=== PATIENT | female | born 1945 | race Caucasian/White ===

== ENCOUNTER 2016-11-03 12:21 | Inpatient (IN) ==
--- NOTE | 2016-11-03 14:02 | CT Report ---
CT brain Indication: Mental status changes Comparison: None available Technique: Axial CT imaging of the brain is performed without contrast with 3 mm increments. Findings: No evidence of hemorrhage, mass mass effect midline shift or acute infarct seen. There is moderate diffuse cerebral atrophy. There are areas of decreased density seen within the white matter, likely related to chronic microvascular change. Otherwise the brain parenchyma attenuation and differentiation appears within normal limits. The ventricles and cisterns are normal in caliber. No cranial or skull base abnormality is identified. Impression: No evidence of acute process demonstrated. This CT exam was performed using one or more the following dose reduction techniques: Automated exposure control, adjustment of the MA and/or KV according to patient size, or use of iterative reconstruction technique. PROCEDURE INTERPRETED AT [facility] DEPARTMENT OF RADIOLOGY Final Report Signed by: Dr. Adarsh Malik
--- NOTE | 2016-11-03 14:06 | XRay Report ---
XR chest 1V portable Indication: Altered mental status Comparison: 11 August 2013 Findings: The heart and mediastinum are normal in size and configuration. The pulmonary vascularity is increased especially centrally similar to previous study. Lung volumes are increased with prominent bronchial markings. No lung infiltrates, effusions, pneumothorax or other abnormality is demonstrated. Impression: Chronic lung changes. No acute process or significant change. PROCEDURE INTERPRETED AT [facility] DEPARTMENT OF RADIOLOGY Final Report Signed by: Dr. Adarsh Malik
[2016-11-03 14:15] LABS: Basophils % 0.2 % (0.0-0.8); Eosinophils # 0.1 10*3/uL (0.0-0.87); Eosinophils % 0.9 % (0.00-10.9); Hematocrit 38.2 VOL% (35.7-47.0); Immature Granulocytes % 0.4 %; Immature Granulocytes Absolute 0.03 #; Lymphocytes # 1.8 10*3/uL (1.4-4.0); Lymphocytes % 22.5 % (21.3-54.2); Mean Corpuscular Hemoglobin 30 PG (27-34); Mean Corpuscular Volume 88.8 FL (87-102); Mean Platelet Volume 10.1 FL (9.6-12.0); Monocytes # 0.8 10*3/uL (0.11-0.8); Monocytes % 10.2 % (1.7-12.7); Neutrophils # 5.3 10*3/uL (1.4-7.4); Neutrophils % 65.8 % (38.7-73.9); Platelet Count 221 T/CUMM (130-400); Red Cell Distribution Width 13.7 % (9.3-17.3)
[2016-11-03 14:56] LABS: Apearance,Urine CLOUDY (Clear); Bacteria,Urine Many /HPF (Few); Bilirubin,Urine Negative (Negative); Blood, Urine Small mg/dL (Negative); Glucose,Urine (UA) Negative (Negative); Ketones,Urine 5 mg/dL (Negative); Mucus,Urine Many /LPF (Occasional); Nitrite,Urine Positive (Negative); Protein,Urine 30 MG/DL; Squamous Epithelial Cell,Urine Occasional /HPF (0-10); Urine Color Amber (Yellow); Urine Specific Gravity 1.016 (1.001-1.035); Urine Urobilinogen < 2.0 EU/DL (0.2-1.0); WBC,Urine 55 /HPF (0-6)
[2016-11-03 14:56] LABS: Albumin 3.7 G/DL (3.4-5.0); Bilirubin,Total 0.8 MG/DL (0.2-1.0); Calcium 8.8 MG/DL (8.5-10.1); Osmolality,Calculated 271.8 MOS/KG (273-304); Total Protein 8.2 G/DL (6.4-8.3)
[2016-11-03 14:58] LABS: Potassium 2.4 MMOL/L (3.5-5.1)
[2016-11-03] MEDS ORDERED: POTASSIUM CHLORIDE 8 MEQ CAPSULE PO STA (15:00)
[2016-11-03] MEDS ORDERED: LEVOFLOXACIN INJ 250 MG in PREMIX 1 EACH IV STA (15:01)
[2016-11-03] MEDS ORDERED: POTASSIUM CHLORIDE 20 MEQ TABLET PO ONE (15:28)
[2016-11-03] MEDS ORDERED: POTASSIUM CHLORIDE 10 MEQ TABLET PO ONE (15:28)
--- NOTE | 2016-11-03 15:50 | Emergency Department Note ---
IFabby Brittany, am scribing for, and in the presence of, Cristi Schwartz MD 13:49. Efren Hendrickson Doug C, MD, personally performed the services described in this documentation, ascribed by Kaylah Sequeira in my presence, and it is both accurate and complete . Arrival - Arrival Chief Complaint: Neuro Stated Complaint: recent memory loss ED Nursing Triage Note: c/o family member states that patient is having memory loss over the last year got worse over the last week, family is also wanting her checked for a UTI, family states nothing new is occuring today , patient alert to self, ,month and place Mode of Arrival: Wheelchair Limitations: No Limitations Source: Patient Time Seen by Provider: 11/03/16 13:38 - History of Present Illness HPI Narrative: Patient is a 71-year-old white female brought in by family for evaluation of difficulty with her memory. Her son states this been going on for about a year now but got significantly worse 1 week ago. The family discovered that she had been taking very large doses of Benadryl to help her sleep and had been taken up to 200 mg at night. They stopped her Benadryl and she states she has been unable to sleep since that time. She sees Dr. Mary Dodd in [place] for her multiple sclerosis but is not on any medication other than Sinemet at present. Patient's not had any fever or chills and she denies any urinary symptoms or respiratory symptoms. She has fallen twice in the last week but said one time she stumbled and caught her foot on the carpet. She has no history of any head injury. Onset (ago): week(s) (Started 1 week ago) Consistency: constant Severity: moderate Allergies/Adverse Reactions: Allergies Allergy/AdvReac Type Severity Reaction Status Date / Time Penicillins Allergy HIVES Verified 11/03/16 12:46 Home Medications: Home Medications Medication Instructions Recorded Confirmed Type Aspirin EC Tab 325 mg PO QPM 11/03/16 11/03/16 History Atenolol 12.5 mg PO QPM 11/03/16 11/03/16 History Carbidopa/Levodopa [Carbidopa-Levo 1 each PO QPM 11/03/16 11/03/16 History ER 50-200 Tab] Review of System - Review of System 12 point system: reviewed and no additional remarkable complaints except as stated - Review of System Review of Systems: Falls Constitutional: Absent: fever Respiratory: Absent: cough Cardiovascular: Absent: dyspnea on exertion Genitourinary female: Absent: dysuria Neurological: Present: confusion, other (Slurred speech, per son ) Medical,Surgical,& Family Hx - Medical History Neurology: History of: Multiple Sclerosis - Social History Smoking Status: Never smoker Frequency of Alcohol Use: None Type of Drug Use: None Exam Vital Signs: Vital Signs Temperature 98.5 F 11/03/16 14:00 Pulse Rate 64 11/03/16 14:00 Respiratory Rate 16 11/03/16 14:00 Blood Pressure 140/54 11/03/16 14:00 O2 Sat by Pulse Oximetry 97 11/03/16 12:40 - General General appearance: alert, in no apparent distress - Head Head exam: Present: atraumatic, normocephalic, normal inspection - Eye Eye exam: Present: normal appearance, PERRL, EOMI. Absent: scleral icterus, conjunctival injection, nystagmus, miosis, mydriasis - ENT ENT exam: Present: normal exam, normal oropharynx, mucous membranes moist, TM's normal bilaterally, normal external ear exam - Neck Neck exam: Present: normal inspection, full ROM, trachea midline. Absent: tenderness, meningismus, lymphadenopathy, thyromegaly - Chest Chest inspection: Present: normal inspection, symmetric chest wall rise. Absent : tenderness, rash, abscess - Respiratory Respiratory exam: Present: normal lung sounds bilaterally. Absent: prolonged expiratory phase, rales, respiratory distress, rhonchi, stridor, wheezes - Cardiovascular Cardiovascular exam: Present: regular rate, normal rhythm, normal heart sounds. Absent: murmur, rubs, gallop, clicks, JVD - Abdominal Exam Abdominal exam: Present: soft, normal bowel sounds. Absent: distention, tenderness, guarding, rebound, rigidity - Rectal Exam Rectal exam: Present: deferred - Extremities Exam Extremities exam: Present: normal inspection, full ROM, normal capillary refill. Absent: tenderness, pedal edema, joint swelling, calf tenderness - Back Exam Back exam: Present: normal inspection, full ROM. Absent: tenderness, muscle spasm, rashes - Neurological Exam Neurological exam: Present: alert, oriented X3, CN II-XII intact. Absent: motor sensory deficit - Psychiatric Psychiatric exam: Present: normal affect, normal mood. Absent: depressed, agitated, anxious, flat affect, manic - Skin Skin exam: Present: warm, dry, intact, normal color. Absent: rash, cyanosis, diaphoresis, erythema, pallor, mottled Course Course Narrative: Patient's laboratory findings, clinical presentation and radiographic findings were discussed with Jonnathan who is covering the hospitalist service. He will see the patient in emergency room and evaluate for admission. Cultures were obtained and IV Levaquin was begun in the emergency room Results - Labs CBC & BMP: 11/03/16 14:12 11/03/16 14:12 Lab Results: I have reviewed the patients labs Labs: Laboratory Tests 11/03/16 11/03/16 11/03/16 14:04 14:12 14:12 WBC 8.0 RBC 4.30 Hgb 13.0 Hct 38.2 MCV 88.8 MCH 30 MCHC 34.0 RDW 13.7 Plt Count 221 MPV 10.1 Neut % (Auto) 65.8 Lymph % (Auto) 22.5 Gooding % (Auto) 10.2 Eos % (Auto) 0.9 Baso % (Auto) 0.2 Neut # (Auto) 5.3 Lymph # (Auto) 1.8 Gooding # (Auto) 0.8 Eos # (Auto) 0.1 Baso # (Auto) 0.0 Immature Gran % 0.4 Nucleated RBC % 0.0 Immature Gran # 0.03 Nucleated RBCs # 0.00 Sodium 137 Potassium 2.4 L* Chloride 98 Carbon Dioxide 30 Anion Gap 11.4 BUN 11 Creatinine 0.90 GFR Calculation 62 BUN/Creatinine Ratio 12.00 Glucose 98 Calculated Osmolality 271.8 L Calcium 8.8 Total Bilirubin 0.80 AST 13 ALT 10 L Alkaline Phosphatase 98 Total Protein 8.2 Albumin 3.7 Globulin 4.5 H Albumin/Globulin Ratio 0.8 L Urine Color Sylvia Urine Appearance Cloudy Urine pH 5.0 Ur Specific [place] 1.016 Urine Protein 30 Urine Glucose (UA) Negative Urine Ketones 5 Urine Blood Small Urine Nitrate Positive H Urine Bilirubin Negative Urine Urobilinogen < 2.0 H Urine Leukocytes Small H Urine WBC 55 Ur Squamous Epith Cells Occasional Urine Bacteria Many Urine Mucus Many Ur Culture Indicated? Results to follow - Diagnostic Findings Procedure: Chest x-ray: image reviewed by me (Chronic lung changes but nothing acute. ), CT: report reviewed by me (Head CT: Nothing acute. ) Disposition Clinical Impression: Metabolic encephalopathy Case discussed with: patient, patient's family Disposition: Still a Patient Condition: Stable Time of Disposition: 15:50
--- NOTE | 2016-11-03 18:03 | Hospitalist History & Physical ---
<Jonnathan Post - Last Filed: 11/03/16 17:41> Assessment and Plan - Time spent with patient Time spent with patient: Greater than 30 minutes (1) Metabolic encephalopathy Status: Acute Assessment and plan: Likely secondary to UTI. We will continue treatment with IV Levaquin and IV fluids Current Visit: Yes (2) UTI (urinary tract infection) Status: Acute Assessment and plan: Continue IV Levaquin. Current Visit: Yes (3) Multiple sclerosis Status: Acute Assessment and plan: Continue home medications. Current Visit: Yes (4) Restless leg syndrome Status: Acute Assessment and plan: Continue home medications. Current Visit: Yes History of Present Illness Chief complaint: altered mental status History of present illness: Ms. Bryan is a 71 year old white female with a past medical history significant for hypertension, multiple sclerosis, cardiac arrhythmias, restless leg syndrome who presents to the ED today for further evaluation of altered mental status. The son, who is at bedside, reports that the patient has had a progressively worsening history of difficulty with memory, confusion and disorientation for about 2-3 months now. He tells us that these symptoms seem to have gotten even worse in the last week. Of note, the family discovered that the patient was taking excessive amounts of Benadryl as a sleep aide (sometimes up to 200mg per night). They've stopped from taking them, starting Friday night. The patient reports she has been unable to sleep since that time. On exam , the patient is oriented to person, place, month and year though she is somewhat delayed in her response. She confirms intermittent confusion, disorientation and recent falls. She denies headache, dizziness, chest pain, palpitations, N/V, changes in appetite, urinary or bowel changes, edema. Lab work is remarkable for hypokalemia (2.4) and UTI (positive nitrate, small leuks , 55 WBCs, bacteria and mucus). Case has been discussed with Dr. Schwartz, ER physician, and Dr. Baez, admitting physician and the patient will be admitted for further evaluation and treatment. She is a full code. Home medications have been reviewed and reconciled. Home Medications Medication Instructions Recorded Confirmed Type Aspirin EC Tab 325 mg PO QPM 11/03/16 11/03/16 History Atenolol 12.5 mg PO QPM 07/23/17 07/23/17 History Carbidopa/Levodopa [Carbidopa-Levo 1 each PO QPM 11/03/16 11/03/16 History ER 50-200 Tab] Allergies Allergy/AdvReac Type Severity Reaction Status Date / Time Penicillins Allergy HIVES Verified 11/03/16 12:46 Medical,Surgical,& Family Hx - Medical History Neurology: History of: Multiple Sclerosis - Social History Smoking Status: Never smoker Frequency of Alcohol Use: None Type of Drug Use: None Marital Status: Single Lives With:: Alone Functional capacity: uses cane/walker 12 point system: reviewed and no additional remarkable complaints except as stated Exam - Constitutional Vitals: Period Temp Pulse Resp BP Sys/Mcfarland Pulse Ox Last 24 Hr 98.5 F-98.5 F 59-67 16-18 133-180/54-85 93-98 Exam: General appearance: normal weight, no acute distress - Head Head exam: Present: normocephalic, atraumatic - Eye Eye exam: Present: EOMI. Absent: conjunctival injection, nystagmus Pupils: Present: SAMM, normal accommodation - ENT ENT exam: Present: normal exam, normal external ear exam - Neck Neck exam: Present: normal inspection. Absent: lymphadenopathy, tenderness, thyromegaly - Respiratory Respiratory exam: Present: clear to auscultation bilaterally. Absent: rales, rhonchi, wheezes - Cardiovascular Cardiovascular exam: Present: regular rate and rhythm. Absent: carotid bruit, gallop, rubs - GI/Abdominal GI/Abdominal exam: Present: normal bowel sounds. Absent: ascites, distended, mass - Extremities Exam Extremities exam: Present: normal inspection, normal capillary refill. Absent: edema - Back Exam Back exam: Absent: CVA tenderness (L), CVA tenderness (R) - Neurological Exam Neurological exam: Present: alert, oriented X3, CN II-XII intact, reflexes normal - Psychiatric Psychiatric exam: Present: normal affect, normal mood - Skin Skin exam: Present: normal color, warm, dry Results - Labs CBC & BMP: 11/03/16 14:12 11/03/16 14:12 Lab Results: I have reviewed the past 24 hour labs - Diagnostic Findings Procedure: Chest x-ray: image reviewed by me, report reviewed by me (no acute changes), CT: image reviewed by me, report reviewed by me (head: unremarkable) <Melia Baez - Last Filed: 11/03/16 19:28> History of Present Illness History of present illness: Ms. Bryan is a 71 year old female with multiple medical issues including multiple sclerosis who was brought to the ER for evaluation of progressive recent memory loss and altered mental status.CT head showed no acute changes. Labs showed UTI and hypokalemia of 2.4.Patient was seen, examined and discussed with the RECYCLING MANAGER. Plan IV Levaquin Neuro consult Replete potassium, magnesium level Dementia workup- RPR, TSH, Vit B12 level, Folate levels Mini mental status exam Consider an MRI in am to re-evaluate her MS DVT prophylaxis IVF resume home meds. Exam - Constitutional Vitals: Period Temp Pulse Resp BP Sys/Mcfarland Pulse Ox Last 24 Hr 98.5 F-98.5 F 59-77 16-20 133-180/54-86 93-98 Results - Labs CBC & BMP: 11/03/16 14:12 11/03/16 14:12
[2016-11-03] MEDS ORDERED: ONDANSETRON 4 MG/2 ML VIAL IV PRN (18:28)
[2016-11-03] MEDS ORDERED: ACETAMINOPHEN 325 MG TABLET PO PRN (18:28)
[2016-11-03] MEDS ORDERED: LACTULOSE 20 GM/30 ML UDCUP PO PRN (18:28)
[2016-11-03] MEDS ORDERED: DOCUSATE SODIUM 100 MG CAPSULE PO PRN (18:28)
[2016-11-03] MEDS ORDERED: SODIUM CHLORIDE 0.9% 1,000 ML IV SCH (18:30)
[2016-11-03] MEDS ORDERED: ATENOLOL 25 MG TABLET PO SCH (19:00)
[2016-11-03] MEDS ORDERED: ASPIRIN EC 325 MG TABLET PO SCH (19:00)
[2016-11-03] MEDS ORDERED: CARBIDOPA/LEVODOPA CR 50-200 MG TABLET PO SCH (19:00)
[2016-11-03] MEDS ORDERED: DEXT 5% NACL 0.45% KCL 20 MEQ 20 MEQ/1,000 ML BAG IV SCH (19:30)
[2016-11-03] MEDS ORDERED: SODIUM CHLORIDE 0.45% 1,000 ML IV SCH (19:30)
[2016-11-03] MEDS: ENOXAPARIN 40 MG/0.4 ML SYRINGE SUBCUT SCH (21:21)
[2016-11-03 21:41] LABS: Vitamin B12 242 PG/ML (211-911)
[2016-11-03] MEDS: ZALEPLON 5 MG CAPSULE PO PRN (22:08)
[2016-11-04 06:30] LABS: Basophils % 0.7 % (0.0-0.8); Eosinophils # 0.1 10*3/uL (0.0-0.87); Eosinophils % 1.8 % (0.00-10.9); Hematocrit 34.2 VOL% (35.7-47.0); Hemoglobin 11.6 GM/DL (12.0-16.0); Immature Granulocytes % 0.2 %; Immature Granulocytes Absolute 0.01 #; Lymphocytes # 1.6 10*3/uL (1.4-4.0); Lymphocytes % 28.1 % (21.3-54.2); Mean Corpuscular HGB Conc 33.9 GM/DL (32-36); Mean Corpuscular Hemoglobin 30 PG (27-34); Mean Corpuscular Volume 88.8 FL (87-102); Mean Platelet Volume 11.1 FL (9.6-12.0); Monocytes # 0.6 10*3/uL (0.11-0.8); Monocytes % 10.5 % (1.7-12.7); Neutrophils # 3.3 10*3/uL (1.4-7.4); Neutrophils % 58.7 % (38.7-73.9); Platelet Count 208 T/CUMM (130-400); Red Blood Count 3.85 MC/CUMM (3.8-5.5); Red Cell Distribution Width 13.6 % (9.3-17.3); White Blood Count 5.6 T/CUMM (4-12)
[2016-11-04 06:56] LABS: Calcium 8.3 MG/DL (8.5-10.1); Osmolality,Calculated 277.4 MOS/KG (273-304); Potassium 2.6 MMOL/L (3.5-5.1)
[2016-11-04] MEDS: PANTOPRAZOLE 40 MG TABLET PO SCH (08:55)
[2016-11-04] MEDS: POTASSIUM CHLORIDE RIDER 10 MEQ in PREMIX 1 EACH IV PRN ×6 (08:56→23:27)
[2016-11-04] MEDS ORDERED: LEVOFLOXACIN INJ 500 MG in PREMIX 1 EACH IV SCH (09:00)
[2016-11-04] MEDS ORDERED: HYDROmorphone 2 MG/1 ML VIAL IV PRN (10:56)
--- NOTE | 2016-11-04 12:58 | Magnetic Resonance Report ---
Exam: MR head/brain wo con Date: 11/04/2016 7:29 PM Comparison: CT brain 11/03/2016 Indication: Memory loss Technical: 1.5 Michelle magnet Axial T1 pre-and ADC, DWI, FLAIR, gradient echo and FSE T2 Sagittal T1 precontrast, FLAIR Coronal FSE T2 Contrast:0 cc Dotarem Findings: Exam reveals small area of abnormal signal suspected in the right thalamic left thalamic region. Dark signal present on ADC imaging. These could represent small tiny infarctions. The cerebellum reveals component of mild atrophic changes. The brainstem is otherwise intact. The cerebral hemispheres exhibit abnormal signal characteristics. Blotchy areas of abnormal signal in the periventricular and subcortical white matter regions with old area of lacunar infarction in the right centrum semiovale along the mid parietal and posterior right parietal lobe. The ventricles are mildly enlarged. The corpus callosum is unremarkable. The seventh and eighth cranial nerves and cerebral pontine angles are intact. The pituitary gland, infundibulum and optic chiasm are intact. The paranasal sinuses exhibit normal signal characteristics. The mastoid sinuses are unremarkable. The globes and intra-and extraconal spaces are unremarkable. Impression: 1. 1. Diffuse small vessel ischemic changes are present in the periventricular subcortical white matter regions bilaterally 2. Old lacunar infarctions in the right parietal lobe anteriorly and posteriorly in the subcortical junction 3. Tiny punctate areas of increased signal on the diffusion image in the basal ganglia thalamic junction right greater than left could represent possibly a small area of infarction with some abnormal signal on the corresponding ADC images well. PROCEDURE INTERPRETED AT [facility] DEPARTMENT OF RADIOLOGY Final Report Signed by: Dr. Sulaiman Jiménez
--- NOTE | 2016-11-04 16:09 | Neurology Consult Note ---
History of Present Illness History of present illness: Ms. Bryan is a 71 year old right-handed white lady with a past medical history significant for hypertension, multiple sclerosis diagnosed some [address] Mary Dodd in [place] but patient is not on any medication, cardiac arrhythmias, restless leg syndrome who presents to the ED for further evaluation of altered mental status. The son, who is at bedside, reports that the patient has had a progressively worsening history of difficulty with memory , confusion and disorientation for about 2-3 months now. He tells us that these symptoms seem to have gotten even worse in the last week. Of note, the family discovered that the patient was taking excessive amounts of Benadryl as a sleep aide (sometimes up to 200mg per night). They've stopped from taking them, starting Friday night. The patient reports she has been unable to sleep since that time. She has been having difficulty in using her phone for last 1 week and that happened more drastically. MRI of the brain revealed questionable bilateral basal ganglia infarct subacute in nature. She is going to see Dr. Mary Dodd in 3 weeks. She was found to have UTI this time and she is now on antibiotics Home Medications Medication Instructions Recorded Confirmed Type Aspirin EC Tab 325 mg PO QPM 11/03/16 11/03/16 History Atenolol 12.5 mg PO QPM 11/03/16 11/03/16 History Carbidopa/Levodopa [Carbidopa-Levo 1 each PO QPM 11/03/16 11/03/16 History ER 50-200 Tab] Allergies Allergy/AdvReac Type Severity Reaction Status Date / Time Penicillins Allergy HIVES Verified 11/03/16 12:46 12 point system: reviewed and no additional remarkable complaints except as stated Medical,Surgical,& Family Hx - Medical History Cardio: History of: Cardiac Dysrhythmia Neurology: History of: Multiple Sclerosis Genitourinary: History of: Recurring Urinary Tract Infections Musculoskeletal: No history of: Amputation - Surgical History Thoracic Surgeries: Patient denies;: Lobectomy Neurologic Surgeries: Patient denies: Neurologic Surgery HEENT Surgeries: Patient denies: Thyroid Surgery Abdominal Surgeries: Surgical HX of: Abdominal Surgery (hysterectomy) Reproductive Surgeries: Surgical HX of;: Gynecologic Surgery, Hysterectomy - Family History Family History: Reports;: Family Cancer (sibling), Family Heart Disease (mother and father) - Social History Smoking Status: Never smoker Frequency of Alcohol Use: None Type of Drug Use: None Exam - Constitutional Vitals: Period Temp Pulse Resp BP Sys/Mcfarland Pulse Ox Last 24 Hr 97.6 F-98.6 F 60-77 16-20 138-180/70-86 91-98 Exam: GENERAL: Patient is in no acute distress. NECK: Neck is supple. There is no JVD. No carotid bruits present. No thyroid masses. CVS: First and second heart sounds are normal. There is no S3 present. Regular rate and rhythm. RESPIRATORY: Lungs are clear to auscultation without any rales or rhonchi. ABDOMEN: Soft and non-tender. Bowel sounds are present. There is no hepatosplenomegaly. EXT: There is no palpable edema. Peripheral pulses are present. Skin: No rashes Central Nervous system: General: Alert, awake and Oriented Speech: Fluent Comprehension: Intact and normal Facial expressions: Normal Cranial Nerves: CN1/Olfactory: Normal CN II/ Optic: Normal, Visual Alvarez unreliable CN III, and : SAMM & EOMI CN V: Normal & intact CN VII: face is symmetric CNVIII: Normal CN XI/X/XI/XII: Intact and Normal Motor: Bulk and Tone is normal. Strength in the right 4/5 Strength in the left 4/5 Sensory: Grossly intact for all the modalities of PP, LT and temp sense Reflexes: 1+ and symmetrical Cerebellar function: Normal finger to nose and heel to moya testing. Toes: Equivocal Gait: Not tested at this time Results - Labs CBC & BMP: 11/04/16 05:53 11/04/16 05:53 Assessment and Plan (1) Infectious encephalopathy Status: Acute Assessment and plan: This is getting better since she is on IV antibiotics. Current Visit: Yes (2) Dementia Status: Acute Assessment and plan: This needs further investigation as an outpatient once UTI clears up. Defer this management to Dr. Mary oscar Current Visit: Yes (3) CVA (cerebral vascular accident) Status: Acute Assessment and plan: The MRI finding is quite unusual to have acute stroke however given patient's worsening symptoms for last 1 week the possibility of an acute stroke cannot be excluded entirely. We will stop aspirin Start Plavix 75 mg daily Lipid profile Current Visit: Yes (4) Multiple sclerosis Status: Acute Assessment and plan: Patient is not on any medication. Multiple sclerosis can cause dementia as well. Defer further management to Dr. Mary Dodd Current Visit: Yes (5) B12 deficiency Status: Acute Assessment and plan: Start B12 1 cc IM daily Current Visit: Yes
[2016-11-04 16:42] LABS: Risk Ratio 3.33; VLDL CHOLESTEROL 24.2 MG/DL
[2016-11-04] MEDS: CYANOCOBALAMIN 1000 MCG/1 ML VIAL IM SCH (16:56)
--- NOTE | 2016-11-04 17:11 | Hospitalist Progress Note ---
Assessment and Plan (1) Encephalopathy Status: Acute Assessment and plan: Patient has history of memory loss per son Now with acute worsening, possibly secondary to UTI, also possibly with CVA Continue levaquin Neurology following Replacing B12 Current Visit: Yes (2) Multiple sclerosis Status: Acute Current Visit: Yes (3) UTI (urinary tract infection) Status: Acute Assessment and plan: Levaquin Current Visit: Yes (4) Dementia Status: Acute Current Visit: Yes (5) CVA (cerebral vascular accident) Status: Acute Assessment and plan: Neurology following Started on plavix Current Visit: Yes (6) B12 deficiency Status: Acute Assessment and plan: Replacing Current Visit: Yes Hospitalist: Subjective Interval history: No acute events overnight. Patient oriented x3. Her responses are noted to be slowed. Exam - Constitutional Vitals: Period Temp Pulse Resp BP Sys/Mcfarland Pulse Ox Last 24 Hr 97.6 F-98.6 F 60-77 16-20 138-172/70-84 91-98 General appearance: normal weight - Head Head exam: Present: normocephalic, atraumatic - Eye Eye exam: Present: EOMI Pupils: Present: SAMM - ENT ENT exam: Present: normal exam - Neck Neck exam: Present: normal inspection - Respiratory Respiratory exam: Present: clear to auscultation bilaterally. Absent: rhonchi, wheezes - Cardiovascular Cardiovascular exam: Present: regular rate and rhythm - GI/Abdominal GI/Abdominal exam: Present: normal bowel sounds, soft. Absent: tenderness, rebound - Extremities Exam Extremities exam: Present: normal inspection - Back Exam Back exam: Present: normal inspection - Neurological Exam Neurological exam: Present: alert, oriented X3 - Psychiatric Psychiatric exam: Present: normal affect, normal mood - Skin Skin exam: Present: warm, intact Results - Labs CBC & BMP: 11/04/16 05:53 11/04/16 05:53
[2016-11-04] MEDS: ENOXAPARIN 40 MG/0.4 ML SYRINGE SUBCUT SCH (20:44)
[2016-11-04] MEDS: CARBIDOPA/LEVODOPA CR 50-200 MG TABLET PO SCH (20:46)
[2016-11-04] MEDS: ATENOLOL 25 MG TABLET PO SCH (21:05)
[2016-11-05] MEDS: ZALEPLON 5 MG CAPSULE PO PRN (00:08)
[2016-11-05] MEDS: POTASSIUM CHLORIDE RIDER 10 MEQ in PREMIX 1 EACH IV PRN ×4 (01:52→12:07)
[2016-11-05 06:10] LABS: Basophils % 0.4 % (0.0-0.8); Eosinophils # 0.1 10*3/uL (0.0-0.87); Hematocrit 35.9 VOL% (35.7-47.0); Hemoglobin 12.1 GM/DL (12.0-16.0); Immature Granulocytes % 0.4 %; Immature Granulocytes Absolute 0.02 #; Lymphocytes # 1.3 10*3/uL (1.4-4.0); Lymphocytes % 24.5 % (21.3-54.2); Mean Corpuscular HGB Conc 33.7 GM/DL (32-36); Mean Corpuscular Hemoglobin 30 PG (27-34); Mean Corpuscular Volume 88.6 FL (87-102); Monocytes # 0.6 10*3/uL (0.11-0.8); Monocytes % 10.7 % (1.7-12.7); Neutrophils # 3.4 10*3/uL (1.4-7.4); Platelet Count 187 T/CUMM (130-400); Red Blood Count 4.05 MC/CUMM (3.8-5.5); Red Cell Distribution Width 13.6 % (9.3-17.3); White Blood Count 5.4 T/CUMM (4-12)
[2016-11-05 06:48] LABS: Calcium 8.5 MG/DL (8.5-10.1); Osmolality,Calculated 271.7 MOS/KG (273-304); Potassium 3.4 MMOL/L (3.5-5.1)
[2016-11-05] MEDS: PANTOPRAZOLE 40 MG TABLET PO SCH (09:03)
[2016-11-05] MEDS: CYANOCOBALAMIN 1000 MCG/1 ML VIAL IM SCH (09:03)
[2016-11-05] MEDS: CLOPIDOGREL 75 MG TABLET PO SCH (09:03)
--- NOTE | 2016-11-05 13:06 | Hospitalist Progress Note ---
Assessment and Plan (1) Encephalopathy Status: Acute Assessment and plan: Patient has history of memory loss per son Now with acute worsening, possibly secondary to UTI, also possibly with CVA Continue levaquin Neurology following Replacing B12 Current Visit: Yes (2) Multiple sclerosis Status: Acute Current Visit: Yes (3) UTI (urinary tract infection) Status: Acute Assessment and plan: Levaquin Urine culture grew E. coli Changing to po in anticipation for possible discharge tomorrow Current Visit: Yes (4) Dementia Status: Acute Current Visit: Yes (5) CVA (cerebral vascular accident) Status: Acute Assessment and plan: Neurology following Started on plavix PT/OT Current Visit: Yes (6) B12 deficiency Status: Acute Assessment and plan: Replacing Current Visit: Yes Hospitalist: Subjective Interval history: No acute events overnight. This morning patient is alert and oriented x3. But her responses are more slowed. She did receive norco and sonata last night. Her son is very eager for her discharge. Possibly tomorrow. Exam - Constitutional Vitals: Period Temp Pulse Resp BP Sys/Mcfarland Pulse Ox Last 24 Hr 97.2 F-98.3 F 58-72 14-20 122-158/50-98 92-96 General appearance: normal weight - Head Head exam: Present: normocephalic, atraumatic - Eye Eye exam: Present: EOMI Pupils: Present: SAMM - ENT ENT exam: Present: normal exam - Neck Neck exam: Present: normal inspection - Respiratory Respiratory exam: Present: clear to auscultation bilaterally. Absent: rhonchi, wheezes - Cardiovascular Cardiovascular exam: Present: regular rate and rhythm - GI/Abdominal GI/Abdominal exam: Present: normal bowel sounds, soft. Absent: tenderness, rebound - Extremities Exam Extremities exam: Present: normal inspection - Back Exam Back exam: Present: normal inspection - Neurological Exam Neurological exam: Present: alert, oriented X3 - Psychiatric Psychiatric exam: Present: normal affect, normal mood - Skin Skin exam: Present: warm, intact Results - Labs CBC & BMP: 11/05/16 05:52 11/05/16 05:52 Specialty Discharge - Follow Up or Referrals
[2016-11-05] MEDS ORDERED: traZODone 50 MG TABLET PO PRN (13:10)
--- NOTE | 2016-11-05 15:10 | Neurology Progress Note ---
Neurology - PN : Subjective Interval history: Patient seems to be doing better. No new problems reported. Lipid panel looks okay. She is able to get up and walk Exam (Progress Note) - Constitutional Vitals: Period Temp Pulse Resp BP Sys/Mcfarland Pulse Ox Last 24 Hr 97.2 F-98.3 F 58-72 14-20 122-158/50-98 92-96 Exam: GENERAL: Patient is in no acute distress. NECK: Neck is supple. There is no JVD. No carotid bruits present. No thyroid masses. CVS: First and second heart sounds are normal. There is no S3 present. Regular rate and rhythm. RESPIRATORY: Lungs are clear to auscultation without any rales or rhonchi. ABDOMEN: Soft and non-tender. Bowel sounds are present. There is no hepatosplenomegaly. EXT: There is no palpable edema. Peripheral pulses are present. Skin: No rashes Central Nervous system: General: Alert, awake and Oriented Speech: Fluent Comprehension: Intact and normal Facial expressions: Normal Cranial Nerves: CN1/Olfactory: Normal CN II/ Optic: Normal, Visual Alvarez unreliable CN III, and : SAMM & EOMI CN V: Normal & intact CN VII: face is symmetric CNVIII: Normal CN XI/X/XI/XII: Intact and Normal Motor: Bulk and Tone is normal. Strength in the right 4/5 Strength in the left 4/5 Sensory: Grossly intact for all the modalities of PP, LT and temp sense Reflexes: 1+ and symmetrical Cerebellar function: Normal finger to nose and heel to moya testing. Toes: Equivocal Gait: Able to get up and walk Results - Labs CBC & BMP: 11/05/16 05:52 11/05/16 05:52 Assessment and Plan (1) Infectious encephalopathy Status: Acute Assessment and plan: This is getting better since she is on IV antibiotics. Current Visit: Yes (2) Dementia Status: Acute Assessment and plan: This needs further investigation as an outpatient once UTI clears up. Defer this management to Dr. Mary oscar Current Visit: Yes (3) CVA (cerebral vascular accident) Status: Acute Assessment and plan: Continue Plavix Current Visit: Yes (4) Multiple sclerosis Status: Acute Assessment and plan: Patient is not on any medication. Multiple sclerosis can cause dementia as well. Defer further management to Dr. Mary Dodd Current Visit: Yes (5) B12 deficiency Status: Acute Assessment and plan: Cont. B12 1 cc IM daily for 3 days then once a week for 4 weeks then once a month and continue for 6 month Sign off please call as needed Current Visit: Yes Specialty Discharge - Follow Up or Referrals
[2016-11-05] MEDS: ENOXAPARIN 40 MG/0.4 ML SYRINGE SUBCUT SCH (20:54)
[2016-11-05] MEDS: CARBIDOPA/LEVODOPA CR 50-200 MG TABLET PO SCH (20:54)
[2016-11-05] MEDS: ATENOLOL 25 MG TABLET PO SCH (20:54)
[2016-11-05] MEDS: POTASSIUM CHLORIDE 20 MEQ TABLET PO PRN (20:54)
[2016-11-06] MEDS: POTASSIUM CHLORIDE 20 MEQ TABLET PO PRN ×2 (01:29→03:44)
[2016-11-06 07:37] LABS: Basophils % 0.4 % (0.0-0.8); Eosinophils # 0.1 10*3/uL (0.0-0.87); Eosinophils % 2.9 % (0.00-10.9); Hematocrit 36.2 VOL% (35.7-47.0); Hemoglobin 12.2 GM/DL (12.0-16.0); Immature Granulocytes % 0.4 %; Immature Granulocytes Absolute 0.02 #; Lymphocytes # 1.1 10*3/uL (1.4-4.0); Lymphocytes % 23.9 % (21.3-54.2); Mean Corpuscular HGB Conc 33.7 GM/DL (32-36); Mean Corpuscular Hemoglobin 30 PG (27-34); Mean Corpuscular Volume 89.6 FL (87-102); Mean Platelet Volume 10.8 FL (9.6-12.0); Monocytes # 0.6 10*3/uL (0.11-0.8); Monocytes % 11.6 % (1.7-12.7); Neutrophils # 2.9 10*3/uL (1.4-7.4); Neutrophils % 60.8 % (38.7-73.9); Platelet Count 211 T/CUMM (130-400); Red Blood Count 4.04 MC/CUMM (3.8-5.5); Red Cell Distribution Width 13.7 % (9.3-17.3); White Blood Count 4.8 T/CUMM (4-12)
[2016-11-06 08:09] LABS: Calcium 9.2 MG/DL (8.5-10.1); Magnesium 2.4 MG/DL (1.8-2.4); Osmolality,Calculated 275.4 MOS/KG (273-304); Potassium 4.1 MMOL/L (3.5-5.1)
[2016-11-06] MEDS ORDERED: LEVOFLOXACIN 500 MG TABLET PO SCH (09:00)
[2016-11-06] MEDS: CLOPIDOGREL 75 MG TABLET PO SCH (09:28)
[2016-11-06] MEDS: CYANOCOBALAMIN 1000 MCG/1 ML VIAL IM SCH (09:28)
[2016-11-06] MEDS: PANTOPRAZOLE 40 MG TABLET PO SCH (09:28)
--- NOTE | 2016-11-06 10:46 | Quality Management ---
The patient's LDL is 97. Please order the appropriate medication or provide a contraindication PRIOR to discharge. To complete this task, you will need to order the medication OR provide a contraindication utilizing the Order Management screen. DO NOT ORDER OR PROVIDE CONTRAINDICATIONS WITHIN THIS QUERY. THIS IS A MEANINGFUL USE REQUIREMENT! Thank you, Sisi Cartagena, RN Clinical Director Strategic Account Management W [phone] [facility]
--- NOTE | 2016-11-06 11:37 | Discharge Summary ---
<Shanelle Estesda - Last Filed: 11/06/16 11:27> Hospital Course - Hospital Course Hospital Course: This is a 71-year-old female that presented to the ED at [facility] on November 03, 2016 for the evaluation of altered mental status. Patient has a medical history significant for hypertension, multiple sclerosis, restless leg syndrome, and cardiac arrhythmias. No surgical history was reported at the time of ED presentation. At the time of ED presentation, the patient presented grossly altered. Her son was present at bedside and served as historian. The son reported that the patient has experienced a gradual change in her mental status over the last couple of months. He reported that the patient started experiencing difficulty remembering things, with increased episodes of confusion and disorientation. He reported that the symptoms became more severe 1 week prior to presentation. In addition, the son reported that the patient had been taking excessive amounts of Benadryl at night in an effort to sleep. He reported that the patient has taken on some occasion in excess of 200 mg. When the son became aware of the patient's Benadryl ingestion, he removed the medications from her on the night of October 28, 2016. He reports that she has not slept since then and has experienced multiple falls. They became alarmed and transported the patient to the ED for further evaluation. At the time of ED presentation, the patient is an alert and oriented however slow to respond. By her own admission, the patient reported intermittent confusion, disorientation, and multiple falls. Labs were obtained; which reported hypokalemia with potassium noted at 2.4 and the patient was noted to have a urinary tract infection with findings of positive nitrates, small amount of leukocytes, white blood cell count was noted at 55, and bacteria and mucus were noted. Chest x-ray was unremarkable for any acute cardiopulmonary processes. CT brain without contrast was negative for any acute intracranial processes. The patient was subsequently admitted to the hospitalist service for continuation of care. Due to the complexity of the patient's comorbidities , a neurology consultation was requested to evaluate and assist during the clinical encounter. Gentle rehydration and empiric antibiotic coverage was initiated at the time of admission. On November 04, 2016, the patient underwent MRI of the brain which reported diffuse small vessel ischemic changes which were present in the periventricular subcortical white matter regions bilaterally, all lacunar for infarctions in the right parietal lobe anteriorly and posteriorly in the subcortical junction, and tiny punctuate areas of increased signal on the diffusion image in the basal ganglia ophthalmic junction right greater than left was possibly employee representative of a small area of infarction with some abnormal signal line on the corresponding ADC images as well. The patient was seen and evaluated by neurology. She wsa started on Plavix 75 mg p.o. daily and her aspirin was stopped. Her B12 was also replaced. This morning she is more alert.. The patient's condition is stable. She has not experienced any significant overnight events. The patient's vital signs are stable. Today, we feel that she is indeed appropriate for discharge to follow-up with her primary care physician and Dr. Mary Dodd. Patient lives alone but her children will stay with her 04/11 for a few days. Specialty Discharge - Follow Up or Referrals Discharge Plan - Discharge Data Disposition: Disch To Home/Self Care - Discharge Medications New Clopidogrel [Plavix] 75 mg PO DAILY #30 tablet Levofloxacin Tab [Levaquin Tab] 500 mg PO DAILY #5 tablet Potassium Citrate [Potassium Citrate ER] 10 meq PO DAILY #30 tablet.er Rosuvastatin [Crestor] 10 mg PO DAILY #30 tablet Cyanocobalamin Inj [Vitamin B12 Inj] 1,000 mcg IM Q7DAY #10 vial Continue Atenolol 12.5 mg PO QPM Restful Legs 1 tablet BEDTIME Carbidopa/Levodopa [Carbidopa-Levo ER 50-200 Tab] 1 each PO QPM Discontinued Aspirin EC Tab 325 mg PO QPM - Follow Up or Referral - Forms/Instructions Instructions: Ischemic Stroke, 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) Exam - Constitutional Vitals: Period Temp Pulse Resp BP Sys/Mcfarland Pulse Ox Last 24 Hr 96.7 F-98.3 F 58-69 18-20 127-151/70-98 92-96 Discharge Results Labs on day of discharge: Labs from last 24 hours 11/06/16 11/06/16 11/06/16 08:58 06:35 06:35 WBC 4.8 RBC 4.04 Hgb 12.2 Hct 36.2 MCV 89.6 MCH 30 MCHC 33.7 RDW 13.7 Plt Count 211 MPV 10.8 Neut % (Auto) 60.8 Lymph % (Auto) 23.9 [place] % (Auto) 11.6 Eos % (Auto) 2.9 Baso % (Auto) 0.4 Neut # (Auto) 2.9 Lymph # (Auto) 1.1 L [place] # (Auto) 0.6 Eos # (Auto) 0.1 Baso # (Auto) 0.0 Immature Gran % 0.4 Nucleated RBC % 0.0 Immature Gran # 0.02 Nucleated RBCs # 0.00 Sodium 140 Potassium 4.1 4.1 Chloride 105 Carbon Dioxide 27 Anion Gap 12.1 BUN 8 Creatinine 0.80 GFR Calculation 71 BUN/Creatinine Ratio 10.00 Glucose 83 Calculated Osmolality 275.4 Calcium 9.2 Magnesium 2.4 11/05/16 18:49 WBC RBC Hgb Hct MCV MCH MCHC RDW Plt Count MPV Neut % (Auto) Lymph % (Auto) [place] % (Auto) Eos % (Auto) Baso % (Auto) Neut # (Auto) Lymph # (Auto) [place] # (Auto) Eos # (Auto) Baso # (Auto) Immature Gran % Nucleated RBC % Immature Gran # Nucleated RBCs # Sodium Potassium 3.4 L Chloride Carbon Dioxide Anion Gap BUN Creatinine GFR Calculation BUN/Creatinine Ratio Glucose Calculated Osmolality Calcium Magnesium DS: Provider Date of admission: 11/03/16 16:19 Primary care physician: . No PCP Attending physician on admission: Melia Baez MD Consults: 11/03/16 19:29 Consult to Physician [CONS] Routine Comment: memeroy loss in an MS patient Consulting Provider: Roberto Chen Consult to Specialist Group: Neurology When should Consulting Provider be notified: In am Person Notified: FAN Date Notified: 11/04/16 Time Notified: 08:56 Consult Notification Comment: 11/04/16 07:28 OT [Consult to Occupational Therapy] [CONS] Routine Reason for Occupational Therapy: Other Consult Comment: for mini mental exam 11/04/16 17:11 Consult to Physical Therapy [CONS] Routine Reason for Physical Therapy: Evaluate and Treat Discharging clinician: Philip Estes CNP <Keisha King - Last Filed: 11/06/16 11:43> Hospital Course - Time spent with patient Time with patient DS: Greater than 30 minutes (35) Diagnosis - Discharge Diagnosis (1) Encephalopathy Status: Resolved (2) Multiple sclerosis Status: Chronic (3) UTI (urinary tract infection) Status: Resolved (4) Dementia Status: Chronic (5) CVA (cerebral vascular accident) Status: Chronic (6) B12 deficiency Status: Resolved Discharge Plan - Discharge Data Condition at Discharge: Stable Discharge Diet: advance to your usual diet Activity: increase activity as tolerated Hygiene: no restrictions Weight Bearing at Discharge: weight bear as tolerated Driving: not until seen by doctor Contact your physician if you experience:: fever over 101, Shortness of breath Exam - Constitutional General appearance: normal weight - Head Head exam: Present: normocephalic, atraumatic - Eye Eye exam: Present: EOMI Pupils: Present: SAMM - ENT ENT exam: Present: normal exam - Neck Neck exam: Present: normal inspection - Respiratory Respiratory exam: Present: clear to auscultation bilaterally. Absent: rhonchi, wheezes - Cardiovascular Cardiovascular exam: Present: regular rate and rhythm - GI/Abdominal GI/Abdominal exam: Present: normal bowel sounds, soft. Absent: tenderness, rebound - Extremities Exam Extremities exam: Present: normal inspection - Back Exam Back exam: Present: normal inspection - Neurological Exam Neurological exam: Present: alert, oriented X3 - Psychiatric Psychiatric exam: Present: normal affect, normal mood - Skin Skin exam: Present: warm, intact
[2016-11-06 11:53] VITALS: BP 114/62
== END 2016-11-06 13:30 | disposition home or self-care (01) | DRG 64 ==
LOC: N.ED 12:21 → N.EDINP 16:19 → SUATTDRO 16:19 → N.5E 18:07
PROVIDERS: ADMIT Internal Medicine; ATTEND Internal Medicine

== ENCOUNTER 2021-12-23 10:02 | Observation (INO) ==
[2021-12-23 11:05] LABS: Albumin 3.6 G/DL (3.4-5.0); Bilirubin,Total 0.7 MG/DL (0.20-1.00); Calcium 10.4 MG/DL (8.5-10.1); Osmolality,Calculated 300.8 MOS/KG (273-304); Potassium 4.4 MMOL/L (3.5-5.1); Total Protein 8.3 G/DL (6.4-8.2)
[2021-12-23] MEDS ORDERED: LACTATED RINGERS 1,000 ML IV ONE (11:14)
[2021-12-23 12:11] LABS: Basophils % 0.1 % (0.0-0.8); Hematocrit 41.6 VOL% (35.7-47.0); Hemoglobin 13.3 GM/DL (12.0-16.0); Immature Granulocytes % 0.7 %; Immature Granulocytes Absolute 0.14 #; Lymphocytes # 0.8 10*3/uL (1.4-4.0); Lymphocytes % 3.9 % (21.3-54.2); Mean Corpuscular Volume 94.8 FL (87-102); Mean Platelet Volume 10.4 FL (9.6-12.0); Monocytes # 0.8 10*3/uL (0.11-0.8); Monocytes % 3.9 % (1.7-12.7); Neutrophils % 91.4 % (38.7-73.9); Platelet Count 297 T/CUMM (130-400); Red Blood Count 4.39 MC/CUMM (3.8-5.5); White Blood Count 19.5 T/CUMM (4-12)
[2021-12-23] MEDS ORDERED: LACTATED RINGERS 500 ML IV ONE (12:16)
[2021-12-23] MEDS ORDERED: cefTRIAXone 1,000 MG in SODIUM CHLORIDE 0.9% 100 ML IV STA (12:16)
[2021-12-23 12:38] LABS: Lymphocytes 4 % (20-55); Total Cells Counted 100
[2021-12-23 12:39] LABS: Platelet Estimate Normal; Polychromasia Slight
[2021-12-23] MEDS ORDERED: ACETAMINOPHEN 325 MG TABLET PO PRN (13:01)
[2021-12-23] MEDS ORDERED: ONDANSETRON 4 MG/2 ML VIAL IV PRN (13:01)
[2021-12-23] MEDS: LACTATED RINGERS 1,000 ML IV SCH ×2 (18:02→23:00)
[2021-12-23] MEDS: DOCUSATE SODIUM 100 MG CAPSULE PO SCH (20:27)
[2021-12-24 05:24] LABS: Basophils % 0.2 % (0.0-0.8); Hematocrit 31.6 VOL% (35.7-47.0); Immature Granulocytes % 0.4 %; Immature Granulocytes Absolute 0.07 #; Lymphocytes # 1.3 10*3/uL (1.4-4.0); Lymphocytes % 7.8 % (21.3-54.2); Mean Corpuscular HGB Conc 31.6 GM/DL (32-36); Mean Corpuscular Volume 95.5 FL (87-102); Mean Platelet Volume 11.1 FL (9.6-12.0); Monocytes % 5.9 % (1.7-12.7); Neutrophils % 85.7 % (38.7-73.9); Platelet Count 207 T/CUMM (130-400); Red Blood Count 3.31 MC/CUMM (3.8-5.5); Red Cell Distribution Width 14.1 % (9.3-17.3); White Blood Count 16.6 T/CUMM (4-12)
[2021-12-24 05:36] LABS: Albumin 2.3 G/DL (3.4-5.0); Bilirubin,Total 0.5 MG/DL (0.20-1.00); Calcium 9.2 MG/DL (8.5-10.1); Osmolality,Calculated 295.7 MOS/KG (273-304); Potassium 3.4 MMOL/L (3.5-5.1); Total Protein 5.7 G/DL (6.4-8.2)
[2021-12-24] MEDS: LACTATED RINGERS 1,000 ML IV SCH (06:40)
[2021-12-24] MEDS ORDERED: PANTOPRAZOLE 40 MG TABLET PO SCH (09:00)
[2021-12-24] MEDS ORDERED: cefTRIAXone 1,000 MG in SODIUM CHLORIDE 0.9% 100 ML IV SCH (09:00)
[2021-12-24] MEDS: DOCUSATE SODIUM 100 MG CAPSULE PO SCH (11:26)
[2021-12-24] MEDS ORDERED: ZINC OXIDE PASTE 113 GM TUBE TOP SCH (11:30)
[2021-12-24 12:35] VITALS: BP 143/73
== END 2021-12-24 14:57 | disposition hospice, inpatient (51) ==
LOC: N.ED 10:02 → INTOOBSV 13:01 → N.EDINP 13:01 → N.TELEN 14:42 → N.EDINP 14:43
PROVIDERS: ADMIT Family Medicine; ATTEND Family Medicine